=== PATIENT | female | born 1990 | race Caucasian/White ===

== ENCOUNTER → 2024-11-05 13:25 | Outpatient (CLI) | payer OTHER, SELFPAY ==
[2024-11-05 20:45] LABS: Urine N gonorrhoeae NOT DETECTED
[2024-11-05 21:40] LABS: Urine Chlamydia NOT DETECTED
== END ==
PROVIDERS: PCP Family Medicine; Visit Provider Obstetrics & Gynecology
DX: Z34.81 Encounter for supervision of other normal pregnancy, first trimester (principal)
CPT/HCPCS: 87491; 87591

== ENCOUNTER → 2024-12-03 11:45 | Outpatient (CLI) | payer OTHER, SELFPAY ==
[2024-12-03 12:38] LABS: Add Manual Diff / Slide Review NO; Hematocrit 41.0 % (36-46); Hemoglobin 13.9 g/dL (12.0-16.0); Lymphocytes Absolute Auto 1300 /uL (1100-4500); Mean Corpuscular HGB Conc 33.9 % (30-36); Mean Corpuscular Hemoglobin 30.7 PG (26-34); Mean Corpuscular Volume 90.5 fL (80-100); Platelet Count 301 X10^3/uL (150-400)
[2024-12-03 12:49] LABS: Natera Collection Specimen Collected
[2024-12-04 16:19] LABS: Hepatitis B Surface Antigen NEGATIVE s/c (NEGATIVE)
[2024-12-04 16:39] LABS: HIV 1 & 2 Ab/Ag 4th Gen Combo NEGATIVE (NEGATIVE); Hep C Virus Ab w/Reflex Quant NEGATIVE s/c (NEGATIVE)
== END ==
PROVIDERS: PCP Family Medicine; Referring Provider Obstetrics & Gynecology; Visit Provider Obstetrics & Gynecology
DX: Z34.81 Encounter for supervision of other normal pregnancy, first trimester (principal); Z86.2 Personal history of diseases of the blood and blood-forming organs and certain disorders involving the immune mechanism; Z3A.12 12 weeks gestation of pregnancy
CPT/HCPCS: 36415; 80055; 83021; 86787; 86803; 86850; 86900; 86901; 87086; 87389

== ENCOUNTER → 2024-12-31 11:57 | Outpatient (CLI) | payer OTHER, SELFPAY | PROVIDERS: PCP Family Medicine; Referring Provider Obstetrics & Gynecology; Visit Provider Obstetrics & Gynecology | DX: Z34.82 Encounter for supervision of other normal pregnancy, second trimester (principal) | CPT/HCPCS: 36415; 82105 ==

== ENCOUNTER → 2025-02-27 08:01 | Outpatient (CLI) | payer OTHER, SELFPAY ==
[2025-02-27 10:46] LABS: Hematocrit 36.0 % (36-46); Hemoglobin 12.5 g/dL (12.0-16.0)
[2025-02-27 11:07] LABS: GTT (PREG) 1 Hour PP 50gm Dose 115 mg/dL (76-139)
== END ==
LOC: LAB 08:02
PROVIDERS: PCP Family Medicine; Referring Provider Obstetrics & Gynecology; Visit Provider Obstetrics & Gynecology
DX: Z13.0 Encounter for screening for diseases of the blood and blood-forming organs and certain disorders involving the immune mechanism (principal); Z13.1 Encounter for screening for diabetes mellitus
CPT/HCPCS: 36415; 82950; 85014; 85018

== ENCOUNTER → 2025-03-30 17:18 | Outpatient (CLI) | payer OTHER, SELFPAY ==
[2025-03-30 17:52] LABS: Appearance Urine UA CLOUDY; Bilirubin Urine UA NEGATIVE (NEGATIVE); Color Urine UA YELLOW; Glucose Urine UA NEGATIVE (Negative); Ketones Urine UA NEGATIVE (NEGATIVE); Leukocyte Esterase Urine UA NEGATIVE (NEGATIVE); Nitrite Urine UA NEGATIVE (Negative); Occult Blood Urine UA TRACE-INTACT (Negative); Protein Urine UA NEGATIVE (Negative); Specific Gravity Urine UA 1.010 (1.000-1.035); Urobilinogen Urine UA 0.2 E.U./dL (0.2)
[2025-03-30 18:01] LABS: Culture Indicated Urine Cult Not Indicated; pH Urine UA 7.0 (4.5-8.0)
== END ==
PROVIDERS: PCP Family Medicine; Referring Provider Obstetrics & Gynecology; Visit Provider Obstetrics & Gynecology
DX: Z34.90 Encounter for supervision of normal pregnancy, unspecified, unspecified trimester (principal); R30.0 Dysuria
CPT/HCPCS: 81001

== ENCOUNTER → 2025-04-08 15:34 | Outpatient (CLI) | payer OTHER, SELFPAY | PROVIDERS: PCP Family Medicine; Visit Provider Obstetrics & Gynecology | DX: Z34.83 Encounter for supervision of other normal pregnancy, third trimester (principal); R30.0 Dysuria | CPT/HCPCS: 87086 ==

== ENCOUNTER 2025-05-06 15:43 | Observation (INO) | payer OTHER, SELFPAY ==
[2025-05-06 16:33] LABS: Add Manual Diff / Slide Review NO; Hematocrit 36.1 % (36-46); Hemoglobin 12.1 g/dL (12.0-16.0); Lymphocytes Absolute Auto 1800 /uL (1100-4500); Mean Corpuscular HGB Conc 33.5 % (30-36); Mean Corpuscular Hemoglobin 30.1 PG (26-34); Mean Corpuscular Volume 89.7 fL (80-100); Platelet Count 340 X10^3/uL (150-400)
[2025-05-06 16:39] LABS: Alanine Aminotransferase 9 IU/L (<35); Albumin 4.0 g/dL (3.5-5.0); Albumin Globulin Ratio 1.3 (1.0-2.8); Alkaline Phosphatase 126 U/L (38-126); Blood Urea Nitrogen 8 mg/dL (7-17); Calcium 8.5 mg/dL (8.4-10.2); Carbon Dioxide 18 mmol/L (22-32); Chloride 111 mmol/L (98-107); Estimated Glomerular Filt Rate > 60 mL/min (>60); Globulin 3.1 g/dL (1.7-4.1); Glucose 90 mg/dL (70-99); HEMOLYSIS < 15 (0-50); Potassium 4.1 mmol/L (3.4-5.1); Sodium 136 mmol/L (137-145); Total Protein 7.1 g/dL (6.3-8.2); Uric Acid 3.9 mg/dL (2.5-6.2)
[2025-05-06] MEDS: ACETAMINOPHEN 325 MG TABLET 975 MG PO (16:49)
[2025-05-06 17:16] LABS: Protein (Total) Urine Random 14 mg/dL (0-12); Protein Creatinine Ratio Urine 1.05 GRAM/24H
--- NOTE | 2025-05-06 18:13 | PM.OBTRLD ---
Visit Information Visit Information Date of evaluation: 05/06/25 Primary OB Provider: Rosita Eason On-call OB Provider: Gabriela Soto Comments/Additional reasons for admission: Patient is a 35yo @ 34w5d presents to L&D with concern of elevated blood pressure at home and headache. Patient reports that earlier today when driving she got dizzy and everything went black she was able to drive home but then has had a headache since then. She took her BP at home on her home cuff and noted her BP 140-150s/90s so she came to the hospital for evaluation. Since on L&D her headache is improved but does feel like it is still a dull ache bilateral frontal. reports a severe migraine 2 days ago that improved with a cold compress and plans to do hat when she gets home today. She did received 975mg of tylenol today while on L&D. patient denies any contractions, RUQ pain, increased sweeling or scotomas. reports good movement. Vital Signs Vital Signs: BP 110-130s/80s. isolated 154/84 (talking to RN about distressing story at the time) FOR[facility]LY [facility] Medical History Migraine without aura Chicken pox (~1996) Endometriosis (~2011) Abnormal Pap smear of cervix (~2021) Surgical History Anesthesia History of cone biopsy of cervix (~2021) History of laparoscopy Family History Father Substance abuse Heart disease Grandfather Heart disease Aunt Colon cancer Aunt Breast cancer Daughter Anemia Heart failure Social History marital status: unmarried,living together number of children: 2 (lost one child at age of 4) household members: significant other and children lives independently: Yes caregiver/support person: Yes housing: apartment pets and animals: Yes (dog & cat) education level: college (some college) occupational status: unemployed current occupational exposures/hazards: No special floyd needs: No travel history: over 6 months ago seatbelt use: always helmet use: Yes water heater temp set < 120 deg: Yes working smoke detector in home: Yes fire extinguisher in home: Yes carbon monox detector in home: Yes firearms in home: No do you feel safe at home: Yes second hand exposure: No alcohol intake: former substance use type: does not use during the past year weight has: remained stable well-balanced diet: daily or most days daily servings fruits/ve-4 caffeine: Yes (AM coffee) Type(s) of exercise: walking and other (active w/ toddler) Exam Vital Signs (past 8 hours): BP- 110-130s/80s, isolated 150 systolic Narrative Exam Narrative: General- AAO x 3, NAD abdomen- soft, nontender fundus- firm FHTs- baseline 145, moderate variability, + accels, - decels LE- trace edema Const General: cooperative and healthy appearing Objective Labs 05/06/25 16:10 05/06/25 16:10 Labs: Laboratory Results - last 24 hr 05/06/25 16:10 WBC 11.8 H RBC 4.03 Hgb 12.1 Hct 36.1 MCV 89.7 MCH 30.1 MCHC 33.5 RDW 13.8 Plt Count 340 Neut % (Auto) 78.4 H Lymph % (Auto) 15.3 L [place] % (Auto) 5.3 Eos % (Auto) 0.6 L Baso % (Auto) 0.4 Neut # (Auto) 9300 H Lymph # (Auto) 1800 [place] # (Auto) 600 Eos # (Auto) 100 Baso # (Auto) 100 Sodium 136 L Potassium 4.1 Chloride 111 H Carbon Dioxide 18 L BUN 8 Creatinine 0.47 L Estimated GFR > 60 BUN/Creatinine Ratio 17.0 Glucose 90 Uric Acid 3.9 Calcium 8.5 Total Bilirubin 0.6 AST 23 ALT 9 Alkaline Phosphatase 126 Total Protein 7.1 Albumin 4.0 Globulin 3.1 Albumin/Globulin Ratio 1.3 U Random Total Protein 14 H Urine Creatinine 13.24 Protein/Creatinin Ratio 1.05 Evaluation Evaluation Baseline heart rate: 145 Variability: Moderate (6-25) monitor accelerations: Present Monitor Decelerations: Absent Contraction Frequency (minutes): 6 Uterine Contraction Intensity: Mild Category of Tracing: Reactive Status: Category l Diagnosis, Plan/Disposition Plan/Disposition Plan: Fredrick henson a 35yo @ 34w6d presents to L&D with elevated Blood pressure at home and a headache. 1. Elevated blood pressure + headache - Likely diagnosis of Preeclampsia without severe features - BPs during prolonged monitoring- 110-130s/80s, isolated 150 systolic - CBC and CMP wnl - P/c ratio elevated- 1.03 - Bps have been overall normotensive to mild range during prolonged monitoring and currently headache is dull (improved from earlier)-- suspect the headache is a tension headache but discussed importance to rule out a preeclampsia related headache. - considering normal blood work, reassuring status and BPs within normal to mild range-- reasonable to discharge home with close follow up. Plan to discharge home with 24 hour UP collection, return to L&D tomorrow for repeat BP monitoring and blood work. patient instructed to hydrate at home, use her cold compress, warm compress to upper back and massage-- sleep overnight and if headache persisting or worsening instructed to return to L&D - fredrick has a blood pressure cuff at home-- will monitor blood pressure as well-- if severe range Blood pressure >160/110 then instructed to return to L&D -fredrick has good support at home, Aunt with her at visit and is reliable with good transportation discussed likely diagnosis and possible outpaitent management if headache resolved and BPs mild range with normal blood work tomorrow, discussed if severe features will need to proceed with delivery. all questions answered. Fredrick comfortable with plan and will return tomorrow afternoon with completed urine collection and BP monitoring/blood work OB Disposition: home
== END 2025-05-06 18:16 | disposition home or self-care (01) ==
PROVIDERS: Obstetrics & Gynecology; Admitting Provider Obstetrics & Gynecology; PCP Family Medicine; Referring Provider Obstetrics & Gynecology; Visit Provider Obstetrics & Gynecology
DX: O26.893 Other specified pregnancy related conditions, third trimester (principal); R03.0 Elevated blood-pressure reading, without diagnosis of hypertension; R51.9 Headache, unspecified; Z3A.34 34 weeks gestation of pregnancy
CPT/HCPCS: 36415; 59025; 59050; 80053; 84550; 85025; G0378; G0379

== ENCOUNTER 2025-05-07 16:12 | Outpatient (CLI) | payer OTHER, SELFPAY ==
[2025-05-07 16:53] LABS: Add Manual Diff / Slide Review NO; Hematocrit 35.6 % (36-46); Hemoglobin 12.2 g/dL (12.0-16.0); Lymphocytes Absolute Auto 1900 /uL (1100-4500); Mean Corpuscular HGB Conc 34.3 % (30-36); Mean Corpuscular Hemoglobin 30.6 PG (26-34); Mean Corpuscular Volume 89.4 fL (80-100); Platelet Count 324 X10^3/uL (150-400)
[2025-05-07 17:05] LABS: Alanine Aminotransferase 9 IU/L (<35); Albumin 4.0 g/dL (3.5-5.0); Albumin Globulin Ratio 1.3 (1.0-2.8); Alkaline Phosphatase 131 U/L (38-126); Blood Urea Nitrogen 6 mg/dL (7-17); Calcium 9.2 mg/dL (8.4-10.2); Carbon Dioxide 18 mmol/L (22-32); Chloride 109 mmol/L (98-107); Estimated Glomerular Filt Rate > 60 mL/min (>60); Globulin 3.1 g/dL (1.7-4.1); Glucose 80 mg/dL (70-99); HEMOLYSIS < 15 (0-50); Potassium 3.7 mmol/L (3.4-5.1); Sodium 136 mmol/L (137-145); Total Protein 7.1 g/dL (6.3-8.2); Uric Acid 3.8 mg/dL (2.5-6.2)
[2025-05-07 17:48] LABS: Protein (Total) Urine Random 16 mg/dL (0-12); Total Volume Urine 1850 mL
[2025-05-07 17:49] LABS: Protein (Total) Urine Random 16 mg/dL (0-12); Protein Creatinine Ratio Urine 0.66 GRAM/24H
== END 2025-05-07 17:42 | disposition home or self-care (01) ==
LOC: LABOR 16:29 → OB 05-08 06:20
PROVIDERS: Obstetrics & Gynecology; PCP Family Medicine; Referring Provider Obstetrics & Gynecology; Visit Provider Obstetrics & Gynecology
DX: O16.3 Unspecified maternal hypertension, third trimester (principal); Z3A.34 34 weeks gestation of pregnancy
CPT/HCPCS: 36415; 59025; 80053; 84156; 84550; 85025; G0378; G0379

== ENCOUNTER 2025-05-12 13:38 | Outpatient (CLI) | payer OTHER, SELFPAY ==
[2025-05-12 14:05] LABS: Add Manual Diff / Slide Review NO; Hematocrit 36.4 % (36-46); Hemoglobin 12.4 g/dL (12.0-16.0); Lymphocytes Absolute Auto 1600 /uL (1100-4500); Mean Corpuscular HGB Conc 34.1 % (30-36); Mean Corpuscular Hemoglobin 30.4 PG (26-34); Mean Corpuscular Volume 88.9 fL (80-100); Platelet Count 340 X10^3/uL (150-400)
[2025-05-12 14:18] LABS: Alanine Aminotransferase 10 IU/L (<35); Albumin 4.1 g/dL (3.5-5.0); Albumin Globulin Ratio 1.3 (1.0-2.8); Alkaline Phosphatase 136 U/L (38-126); Blood Urea Nitrogen 6 mg/dL (7-17); Calcium 8.9 mg/dL (8.4-10.2); Carbon Dioxide 17 mmol/L (22-32); Chloride 110 mmol/L (98-107); Estimated Glomerular Filt Rate > 60 mL/min (>60); Globulin 3.2 g/dL (1.7-4.1); Glucose 78 mg/dL (70-99); HEMOLYSIS < 15 (0-50); Potassium 4.1 mmol/L (3.4-5.1); Sodium 136 mmol/L (137-145); Total Protein 7.3 g/dL (6.3-8.2); Uric Acid 4.2 mg/dL (2.5-6.2)
[2025-05-12 19:25] LABS: Protein (Total) Urine Random 19 mg/dL (0-12)
[2025-05-13 17:00] LABS: Protein Creatinine Ratio Urine 0.56 GRAM/24H
== END 2025-05-12 14:30 | disposition home or self-care (01) ==
LOC: LABOR 13:49 → OB 05-13 06:04
PROVIDERS: PCP Family Medicine; Referring Provider Obstetrics & Gynecology; Visit Provider Obstetrics & Gynecology
DX: O16.3 Unspecified maternal hypertension, third trimester (principal); O47.03 False labor before 37 completed weeks of gestation, third trimester; Z3A.35 35 weeks gestation of pregnancy
CPT/HCPCS: 59025; 80053; 84550; 85025; G0378; G0379

== ENCOUNTER 2025-05-19 08:49 | Outpatient (CLI) | payer OTHER, SELFPAY ==
[2025-05-19 09:14] LABS: Add Manual Diff / Slide Review NO; Hematocrit 36.8 % (36-46); Hemoglobin 12.3 g/dL (12.0-16.0); Lymphocytes Absolute Auto 1500 /uL (1100-4500); Mean Corpuscular HGB Conc 33.5 % (30-36); Mean Corpuscular Hemoglobin 29.9 PG (26-34); Mean Corpuscular Volume 89.4 fL (80-100); Platelet Count 318 X10^3/uL (150-400)
[2025-05-19 09:26] LABS: Alanine Aminotransferase 15 IU/L (<35); Albumin 3.9 g/dL (3.5-5.0); Albumin Globulin Ratio 1.2 (1.0-2.8); Alkaline Phosphatase 142 U/L (38-126); Blood Urea Nitrogen 6 mg/dL (7-17); Calcium 8.8 mg/dL (8.4-10.2); Carbon Dioxide 16 mmol/L (22-32); Chloride 109 mmol/L (98-107); Estimated Glomerular Filt Rate > 60 mL/min (>60); Globulin 3.2 g/dL (1.7-4.1); Glucose 105 mg/dL (70-99); HEMOLYSIS < 15 (0-50); Potassium 3.8 mmol/L (3.4-5.1); Sodium 136 mmol/L (137-145); Total Protein 7.1 g/dL (6.3-8.2); Uric Acid 4.3 mg/dL (2.5-6.2)
[2025-05-19 09:32] LABS: Protein (Total) Urine Random 30 mg/dL (0-12); Protein Creatinine Ratio Urine 0.25 GRAM/24H
== END 2025-05-19 09:25 | disposition home or self-care (01) ==
LOC: LABOR 09:13 → OB 10:17
PROVIDERS: PCP Family Medicine; Referring Provider Obstetrics & Gynecology; Visit Provider Obstetrics & Gynecology
DX: O47.03 False labor before 37 completed weeks of gestation, third trimester (principal); Z3A.36 36 weeks gestation of pregnancy
CPT/HCPCS: 36415; 59025; 80053; 84550; 85025; 87653; G0378; G0379

== ENCOUNTER → 2025-05-19 09:56 | Outpatient (CLI) | payer OTHER, SELFPAY ==
[2025-05-20 10:58] LABS: Strep Grp B PCR NEG for Grp B Strep
== END ==
PROVIDERS: PCP Family Medicine; Referring Provider Obstetrics & Gynecology; Visit Provider Obstetrics & Gynecology
DX: Z34.80 Encounter for supervision of other normal pregnancy, unspecified trimester (principal); Z3A.36 36 weeks gestation of pregnancy
CPT/HCPCS: 87653

== ENCOUNTER 2025-05-25 08:24 | Outpatient (CLI) | payer OTHER, SELFPAY ==
[2025-05-25 09:01] LABS: Add Manual Diff / Slide Review NO; Hematocrit 37.1 % (36-46); Hemoglobin 12.6 g/dL (12.0-16.0); Lymphocytes Absolute Auto 1500 /uL (1100-4500); Mean Corpuscular HGB Conc 34.0 % (30-36); Mean Corpuscular Hemoglobin 30.3 PG (26-34); Mean Corpuscular Volume 89.4 fL (80-100); Platelet Count 354 X10^3/uL (150-400)
[2025-05-25 09:13] LABS: Alanine Aminotransferase 15 IU/L (<35); Albumin 3.9 g/dL (3.5-5.0); Albumin Globulin Ratio 1.1 (1.0-2.8); Alkaline Phosphatase 149 U/L (38-126); Blood Urea Nitrogen 5 mg/dL (7-17); Calcium 8.7 mg/dL (8.4-10.2); Carbon Dioxide 17 mmol/L (22-32); Chloride 110 mmol/L (98-107); Estimated Glomerular Filt Rate > 60 mL/min (>60); Globulin 3.4 g/dL (1.7-4.1); Glucose 107 mg/dL (70-99); HEMOLYSIS < 15 (0-50); Potassium 3.5 mmol/L (3.4-5.1); Sodium 136 mmol/L (137-145); Total Protein 7.3 g/dL (6.3-8.2); Uric Acid 4.5 mg/dL (2.5-6.2)
[2025-05-25 09:35] LABS: Protein (Total) Urine Random 32 mg/dL (0-12); Protein Creatinine Ratio Urine 0.57 GRAM/24H
== END 2025-05-25 09:35 | disposition home or self-care (01) ==
LOC: LABOR 08:32 → OB 10:36
PROVIDERS: PCP Family Medicine; Referring Provider Obstetrics & Gynecology; Visit Provider Obstetrics & Gynecology
DX: O16.3 Unspecified maternal hypertension, third trimester (principal); Z3A.37 37 weeks gestation of pregnancy
CPT/HCPCS: 36415; 59025; 80053; 84550; 85025; G0378; G0379

== ENCOUNTER 2025-05-31 17:46 | Observation (INO) | payer OTHER, SELFPAY ==
[2025-05-31 18:27] LABS: Add Manual Diff / Slide Review NO; Hematocrit 36.5 % (36-46); Hemoglobin 12.4 g/dL (12.0-16.0); Lymphocytes Absolute Auto 1900 /uL (1100-4500); Mean Corpuscular HGB Conc 33.9 % (30-36); Mean Corpuscular Hemoglobin 30.1 PG (26-34); Mean Corpuscular Volume 88.8 fL (80-100); Platelet Count 351 X10^3/uL (150-400)
[2025-05-31 18:39] LABS: Alanine Aminotransferase 11 IU/L (<35); Albumin 4.1 g/dL (3.5-5.0); Albumin Globulin Ratio 1.3 (1.0-2.8); Alkaline Phosphatase 164 U/L (38-126); Blood Urea Nitrogen 8 mg/dL (7-17); Calcium 9.2 mg/dL (8.4-10.2); Carbon Dioxide 17 mmol/L (22-32); Chloride 109 mmol/L (98-107); Estimated Glomerular Filt Rate > 60 mL/min (>60); Globulin 3.1 g/dL (1.7-4.1); Glucose 125 mg/dL (70-99); HEMOLYSIS < 15 (0-50); Potassium 3.7 mmol/L (3.4-5.1); Sodium 134 mmol/L (137-145); Total Protein 7.2 g/dL (6.3-8.2); Uric Acid 4.1 mg/dL (2.5-6.2)
[2025-05-31 19:10] LABS: Protein (Total) Urine Random 43 mg/dL (0-12); Protein Creatinine Ratio Urine 1.90 GRAM/24H
--- NOTE | 2025-05-31 20:22 | P.CALLCOV_ITS ---
Call Coverage Note Note Date of Patient Contact: 05/31/25 Time of Patient Contact: 20:22 Narrative of Care Provided: Patient presented to L+D Triage b/o an elevated BP at home--> around 160 systolic. States she was feeling anxious at that time. Denies CATHERINE, VC, RUQ pain. Is being followed closely d/t intermittent BP elevations ( not severe,) with increased PC ratio 1.03 w/o previou h/o preE or proteinuria. Patient does not wish to be induced unless Dr Eason is automobile brakes bonder. She is due for another NST and preE labs this coming Sunday and she offerred the possibility of labor induction the same day. A spot for IOL was held if Dr Eason agrees with this plan. She will continue to monitor BP's at home and return PRN prior to Sunday if so.
== END 2025-05-31 20:34 | disposition home or self-care (01) ==
LOC: LABOR 17:49
PROVIDERS: Specialist; Admitting Provider Student in an Organized Health Care Education/Training Program; PCP Family Medicine; Referring Provider Student in an Organized Health Care Education/Training Program; Visit Provider Student in an Organized Health Care Education/Training Program
DX: O16.3 Unspecified maternal hypertension, third trimester (principal); Z3A.38 38 weeks gestation of pregnancy
CPT/HCPCS: 36415; 59025; 59050; 80053; 84550; 85025; G0378; G0379

== ENCOUNTER 2025-06-02 09:25 | Inpatient (IN) | payer OTHER, SELFPAY ==
[2025-06-02 10:22] LABS: Add Manual Diff / Slide Review NO; Hematocrit 37.6 % (36-46); Hemoglobin 12.8 g/dL (12.0-16.0); Lymphocytes Absolute Auto 1600 /uL (1100-4500); Mean Corpuscular HGB Conc 33.9 % (30-36); Mean Corpuscular Hemoglobin 30.2 PG (26-34); Mean Corpuscular Volume 89.0 fL (80-100); Platelet Count 340 X10^3/uL (150-400)
[2025-06-02 10:34] LABS: Blood Urea Nitrogen 9 mg/dL (7-17); Calcium 9.2 mg/dL (8.4-10.2); Carbon Dioxide 17 mmol/L (22-32); Chloride 108 mmol/L (98-107); Estimated Glomerular Filt Rate > 60 mL/min (>60); Glucose 120 mg/dL (70-99); HEMOLYSIS < 15 (0-50); Potassium 3.7 mmol/L (3.4-5.1); Sodium 135 mmol/L (137-145)
[2025-06-02 10:50] LABS: Protein (Total) Urine Random 58 mg/dL (0-12); Protein Creatinine Ratio Urine 0.82 GRAM/24H
--- NOTE | 2025-06-02 11:33 | P.HPOB_ITS ---
OB HPI Date/Time Date of admission: 06/02/25 Date Patient Seen: 06/02/25 Time Patient Seen: 10:30 History of Present Condition Chief complaint: gestational HTN RADHA Calculator 2 Estimated Delivery Date Method Current WG Current Estimate 06/12/25 LMP (Certain) 38w 4d Other Estimates 06/14/25 Ultrasound #1 38w 2d Estimated Gestational Age (weeks): 38w4d : 5 Para: 3 Narrative: 35yo at 38w4d by first trimester US presents to facility for repeat evaluation in setting of suspected gestational HTN. Patient last seen 05/31 in triage by [facility] provider (Dr. Henry) after presenting with concerns for elevated BP at home. At time of presentation PIH labs were wnl with exception of prior identified proteinuria. Patient was counseled on recommendation for IOL however declined at that time with planned interval assessment today. Today patient states she is overall feeling well, denies CATHERINE, visual changes, RUQ pain. +FM, denies VB, LOF, dysuria. Diastolic BP on arrival today mild range, now 2 encounters with mild range BP r/in for GHTN with recommendation to proceed with IOL which patient is amenable to today. course unremarkable. POBHx significant for borderline short interval (conceived 14mos ) as well as h/o rapid vaginal deliveries, h/o HSV compliant with suppressive therapy. care: none Dating criteria OB: based on 1st trimester US only Obstetrical complications: none Medical complications OB: none Indications Indication for induction OB: gestational HTN/pre-eclampsia and history of rapid labor Preadmission Labs Last OB Lab Results: 2 Blood Type O Positive Today, 09:55 Antibody Screen Negative Today, 09:55 Hct, (36-46) 37.6 % Today, 09:55 Hgb, (12.0-16.0) 12.8 g/dL Today, 09:55 Hep Bs Antigen, (NEGATIVE) Negative s/c 12/03/24, 11: 49 Hepatitis C Antibody, (NEGATIVE) Negative s/c 5, 11:49 Rubella Antibody, (>15) 31.0 IU/mL 12/03/24, 11:49 VZV IgG Antibody, (Non Reactive) Reactive 5, 11:49 Glucose 1 Hr 50 gm, (76-139) 115 mg/dL 02/27/25, 1 0:04 Group B Strep (PCR) Neg for grp b strep 05/19/25, 09:56 -: Chlamydia screen: negative and Gonorrhea screen: negative -: PAP smear: Normal Genetic Screens: Cell-free DNA: Normal and Alpha-fetoprotein: Normal Prior (ies) Past Pregnancies Del. Date GA/Weeks Labor Lgth Wt Sex Route Outcome Anesthesia Place Delv Breastfeed Preg Comp Name 08/25/13 39 7 lb Female vaginal live - full term epidural [place] N/A [place] 08/30/21 39.5 3 6 lb Female vaginal live - full term epidural [place] 15 [place] 09/04/23 39 1 6 lb 5 oz Male vaginal live - full term no ne [place]ack[place] still going as of 11/03/24 [place] Delivery Date: 08/30/21 Last Updated by: Ruby Stevens RN precipitous delivery; age 4 of anemia & heart failure Delivery Date: 09/04/23 Last Updated by: Ruby Stevens RN precipitous delivery Hx # Term Pregnancies: 5 Hx # Pregnancies: 0 Number of Living Children: 2 Spontaneous abortions: 1 Evaluation Evaluation Baseline heart rate: 140 Variability: Moderate (6-25) monitor accelerations: Present Monitor Decelerations: Absent Uterine Contraction Intensity: Mild Category of Tracing: Reactive Status: Category l Dilation (cm): 1 Effacement (%): 0 Dilation: 1-2 cm Effacement: 0-30% station: -4 Position of cervix: mid Consistency: soft [place] score: 4 PFSH Medical History Migraine without aura Chicken pox (~1996) Endometriosis (~2011) Abnormal Pap smear of cervix (~2021) Surgical History Anesthesia History of cone biopsy of cervix (~2021) History of laparoscopy Family History Father Substance abuse Heart disease Grandfather Heart disease Aunt Colon cancer Aunt Breast cancer Daughter Anemia Heart failure Social History marital status: unmarried,living together number of children: 2 (lost one child at age of 4) household members: significant other and children lives independently: Yes caregiver/support person: Yes housing: apartment pets and animals: Yes (dog & cat) education level: college (some college) occupational status: unemployed current occupational exposures/hazards: No special floyd needs: No travel history: over 6 months ago seatbelt use: always helmet use: Yes water heater temp set < 120 deg: Yes working smoke detector in home: Yes fire extinguisher in home: Yes carbon monox detector in home: Yes firearms in home: No do you feel safe at home: Yes second hand exposure: No alcohol intake: former substance use type: does not use during the past year weight has: remained stable well-balanced diet: daily or most days daily servings fruits/ve-4 caffeine: Yes (AM coffee) Type(s) of exercise: walking and other (active w/ toddler) Meds Home Medications and Allergies Home Medications ?Medication ?Instructions ?Recorded ?Confirmed ?Type vitamins no.167-folic 1 tab PO DAILY #90 tabs 11/05/24 06/02/25 Rx acid 400 mcg-dha 25 mg chewable tablet (One-A-Day ) valacyclovir 1 gram tablet 1,000 mg PO DAILY #30 tabs 11/05/24 06/02/25 Rx ondansetron 4 mg disintegrating 4 mg PO Q8H PRN nausea and 11/06/24 06/02/25 Rx tablet vomiting in #60 ta bs Allergies Allergy/AdvReac Type Severity Reaction Status Date / Time No Known Drug Allergies Allergy Verified 05/25/25 08:07 Review of Systems Review of Systems ROS: Yes All systems reviewed with the patient and are negative except as otherwise documented OB Exam Vital signs Blood Pressure: 125/91 Pulse Rate: 107 Respiratory Rate: 18 Temperature: 98.2 F HENMT Head: normal to inspection Eyes General: appearance normal, both eyes and all related structures Resp Effort & Inspection: normal respiratory effort and able to speak in complete sentences Extremities Lower extremity: Yes normal to inspection GI Palpation: Yes soft Other: gravid, krish cephalic 7# External Female Exam: Yes normal external appearance and No lesion Objective Labs 06/02/25 09:55 06/02/25 09:55 Labs: Laboratory Results - last 24 hr 06/02/25 06/02/25 09:50 09:55 WBC 10.8 RBC 4.23 Hgb 12.8 Hct 37.6 MCV 89.0 MCH 30.2 MCHC 33.9 RDW 14.1 Plt Count 340 Neut % (Auto) 79.5 H Lymph % (Auto) 15.2 L [place] % (Auto) 4.1 Eos % (Auto) 0.6 L Baso % (Auto) 0.6 Neut # (Auto) 8600 H Lymph # (Auto) 1600 [place] # (Auto) 400 Eos # (Auto) 100 Baso # (Auto) 100 Sodium 135 L Potassium 3.7 Chloride 108 H Carbon Dioxide 17 L BUN 9 Creatinine 0.48 L Estimated GFR > 60 BUN/Creatinine Ratio 18.8 Glucose 120 H Calcium 9.2 U Random Total Protein 58 H Urine Creatinine 69.94 Protein/Creatinin Ratio 0.82 Assessment and Plan Assessment and Plan Assessment and Plan narrative: 35yo at 38w4d, admitted for medical IOL at term in setting of gestational HTN vs borderline preE without severe features (non-sustained mild range BP >4h apart with proteinuria) IOL CEFM/toco maternal VSS, continue close BP monitoring with low threshold to proceed with magnesium for seizure prophylaxis in catholic of severe range BP misoprostol 50mg PO now, reassess in 4h with planned additional cervical ripening vs IV pitocin vs AROM with adequate descent anticipate Time-Based Coding :: [TOTAL MINUTES] spent with patient and on the chart (including review of chart, obtaining history, exam, reviewing outside data, placing orders, documenting exam and treatment plan, and counseling patient) on [DATE].
[2025-06-02 11:41] VITALS: BP 125/91; PULSE 107; RESP 18; TEMP 36.8
[2025-06-02 11:52] VITALS: BP 125/91
[2025-06-02] MEDS: OXYTOCIN PREMIX 30 UNIT/500 ML PLAST..BAG IV (14:38)
--- NOTE | 2025-06-02 17:37 | PM.OBPNLAB ---
Date/Time Date Patient Seen: 06/02/25 Time Patient Seen: 14:30 Pain Control Pain control: tolerating well Pelvic Exam Dilation (cm): 3 Effacement (%): 50 station: -4 Amniotic membrane status: Intact Comments: ballotable Contractions Contractions on admission: regular Monitor mode: External Contraction pattern: Regular Contraction intensity: Mild Status status: Category l Heart Rate Baseline: 140 Monitor Accelerations: Present Monitor Decelerations: Absent Monitor Variability: Moderate Assessment and Plan Assessment: induction ongoing Comments: start IV pitocin for contraction augmentation anticipate AROM with next SVE anticipate
--- NOTE | 2025-06-02 17:43 | PM.OBPNLAB ---
Date/Time Date Patient Seen: 06/02/25 Time Patient Seen: 16:30 Pain Control Pain control: tolerating well Pelvic Exam Dilation (cm): 5 Effacement (%): 50 station: -4 Comments: AROM clear fluid Contractions Contractions on admission: regular Monitor mode: External Pitocin rate (mU/min): 4 Contraction frequency (min): 2 Contraction duration (min): 1 Contraction pattern: Regular Contraction intensity: Mild Status status: Category l Heart Rate Baseline: 140 Monitor Accelerations: Present Monitor Decelerations: Absent Monitor Variability: Moderate Assessment and Plan Assessment: induction ongoing Plan: continuous present management Comments: AROM copious clear fluid pt desires unmedicated vs nitrous oxide analgesia for delivery continue CEFM/toco, encourage ambulation anticipate
[2025-06-02] MEDS: ONDANSETRON 4 MG/2 ML INJ IV (19:20)
[2025-06-02] MEDS: fentaNYL 100 MCG/2 ML INJ 50 MCG IV (19:41)
[2025-06-02] MEDS: KETOROLAC 30 MG/ML VIAL IV (19:58)
--- NOTE | 2025-06-02 20:10 | PM.OBPRVD ---
Events: Induced HTN Labor & Delivery Delivery date: 06/02/25 Delivery Time: 19:34 Intrapartal Events: None Cervical ripening method: per misoprostal protocol Induction method: per pitocin protocol Delivery augmentation: rupture of membranes Delivery monitor: external FHT Route of delivery: Episiotomy description: None L&D Laceration Description: Perineal - 1st Degree Estimated blood loss (mL): 200 Anesthesia Type: None Narrative: called by RN at 1915 with updated cervical exam, 6/C/+1. On presentation to room patient on all fours actively laboring with inhaled nitrous analgesia. Patient requested to transfer to dorsal lithotomy position and SVE 8/C/0. With next contraction pt endorsed strong urge to push and repeat SVE C/C/+2. With successive maternal expulsive efforts rapid descent to +4 and then slow with delivery of head at 1934 in HELEN with restitution to maternal L. No movement with application of gentle downward traction. Shoulder dystocia identified and verbalized to room; pt placed in [place] and with next expulsive effort anterior shoulder easily delivered following by posterior shoulder and body. was cleaned per pt request and then placed skin to skin on maternal abdomen, 8/9. Cord clamped x2 and cut by FOB following 2min delayed cord clamping, 3VC noted. Placenta delivered spontaneously, inspected and noted to be intact. Perineal exam revealed shallow hemostatic first degree perineal laceration, left unrepaired. Fundus palpated and firm << umb. All counts correct x2 [place] Baby 1: gender: Male Presentation: vertex Position: Right Occiput Anterior Placenta delivery description: Spontaneous Cord Vessel Description: 3 Vessels score (1 min): 8 score (5 min): 9 Plan for aftercare: Routine care
[2025-06-02] MEDS: LANOLIN OINT 7 GM 1 APPLIC TOP (20:37)
[2025-06-02] MEDS: DERMOPLAST SPRAY 20% 60 ML 1 SPRAY TOP (20:37)
[2025-06-02] MEDS: ACETAMINOPHEN 325 MG TABLET 650 MG PO (21:12)
[2025-06-03] MEDS: IBUPROFEN 600 MG TABLET PO ×2 (02:05→08:01)
[2025-06-03] MEDS: ACETAMINOPHEN 325 MG TABLET 650 MG PO ×2 (06:18→11:54)
[2025-06-03] MEDS: PRENATAL VIT,CALC/IRON/FOLIC 1 TABLET 1 TAB PO (09:00)
--- NOTE | 2025-06-03 11:57 | P.DS_ITS ---
Discharge Providers Provider Date of admission: 06/02/25 09:25 Discharge Date: 06/03/25 Primary care physician: Cassie Dorman DO Consults: 06/02/25 10:07 Consult to Anesthesiology Urgent Comment: Consulting Provider: Kenzie Thompson Reason for consultation: Epidural 06/02/25 20:28 Consult to Inspector Bicycle Routine Comment: Discharge provider: Gabriela Soto DO Summary Hospital Course Date Patient Seen: 06/03/25 Time Patient Seen: 11:00 Diagnoses: , Single live , gestational HTN Hospital Course: Patient is a 35yo F presented to L&D at 38wks for scheduled indcution of labor for gestational hypertension. SHe was admitted and cervical ripening given with misoprostol. she progressed quickly into active labor. received an epidural for pain control and amniotomy performed. she then quickly progressed to complete dilation and uncomplicated . uncomplicated course and discharged home on PPD 1. Peripartum Data Delivery Method: Natural Vaginal Laceration Description: None Procedures: , epidural complications: none Status at Discharge Cognitive/behavioral status at discharge: oriented Functional status at discharge: independent ambulation Overall status at discharge: patient is back to baseline Time Spent with Patient Time attestation: Total time spent providing and/or coordinating discharge services: Time spent: Less than 30 minutes Specific discharge activities: pelvic rest x 6 weeks Objective Labs 06/02/25 09:55 06/02/25 09:55 Exam Vital Signs (past 8 hours): BPs normotensive Narrative Exam Narrative: General - AAO x 3, NAD lungs- unlabored respirations uterus- firm, below the unbilicus, nontender lochia- minimal LE_ trace edema Discharge Plan Discharge Plan Patient Disposition: Home Discharge orders & Medications Prescriptions: New oxycodone 5 mg capsule 5 mg PO BID PRN (Reason: pain) Qty: 7 0RF Discontinued ondansetron 4 mg tablet,disintegrating 4 mg PO Q8H PRN (Reason: nausea and vomiting in ) Qty: 60 1RF valacyclovir 1 gram tablet 1,000 mg PO DAILY Qty: 30 3RF One-A-Day 400 mcg- 25 mg tablet,chewable 1 tab PO DAILY Qty: 90 3RF Follow up/Referrals: Rosita Eason MD [Physician, [facility]] - 07/17/25 9:30 am Referral Note: follow up with Dr. Eason, please call her for any questions or concerns. arrive 15 minutes prior to your scheduled appointment time. The clinic will reach out to you to make a one week blood pressure check appt. Cassie Dorman DO [Primary Care Provider, [facility]] Diet/Activity/Treatments Diet: Regular Activity: pelvic rest x 6 weeks Skin/Wound/Dressing Care Report to your healthcare provider any signs of infection, such as:: chills, fever, increased pain, unusual drainage and unusual redness Visit Report/Discharge Packet Stand Alone Forms: Discharge: Care Discharge Data Primary Care Provider: Cassie Dorman
[2025-06-03 13:50] VITALS: BP 137/81; PULSE 85; RESP 18; TEMP 36.8
== END 2025-06-03 13:52 | disposition home or self-care (01) | DRG 560 ==
PROVIDERS: Admitting Provider Obstetrics & Gynecology; PCP Family Medicine; Referring Provider Obstetrics & Gynecology; Visit Provider Obstetrics & Gynecology
DX: O13.4 Gestational [pregnancy-induced] hypertension without significant proteinuria, complicating childbirth (principal); Z37.0 Single live birth; Z3A.38 38 weeks gestation of pregnancy; Z67.40 Type O blood, Rh positive
CPT/HCPCS: 36415; 59050; 59200; 80048; 82570; 84156; 85025; 86850; 86900; 86901; G0379; J1885; J2405; J2590; J3010